=== PATIENT | female | born 1965 | race Caucasian/White ===

== ENCOUNTER → 2016-12-16 | Outpatient (CLI) | payer OTHER ==
[~2016-12-16] MED LIST: ALBU17I INH; ALBU6.7H INH; CETI1TAB21 PO; CETI1TAB53 PO; CHRO1000 PO; CINN500C13 PO; CINN500C7 PO; COEN1CAP PO; CRAN1000 PO; CRAN500C2 PO; DULE100A INH; FISH OIL OMEGA PO; FISH1000 PO; GABA300C5 PO; GLIP10TA6 PO; GLUC10TA3 OR; IRON27TA PO; LEVEMIR SQ; LISI10TA3 PO; LOVA10TA PO; LOVA40TA PO; METF1000 PO; METF750T PO; MULT-11 PO; MULTTAB67 PO; NOVOLOGP2 SQ; OMEP20TA OR; OMEP20TA PO; PROBCAP10 OR; PROV10TA PO; SACC1CAP3 PO; SYMB80AE INH; TAB-TAB PO; VITA100064 PO; VITA1CAP20 PO; VITA500T83 PO
[2016-12-16 11:34] LABS: HEMATOCRIT 25.9 % (35.0-46.0); MEAN CORPUSCULAR HEMOGLOBIN 24.1 PG (27.0-34.0); MEAN CORPUSCULAR HGB CONC 31.8 % (32.0-36.0); PLATELET COUNT 213 TH/MM3 (150-450); RED CELL DISTRIBUTION WIDTH 15.5 % (11.6-17.2); REVIEW FLAG FINAL; WHITE BLOOD COUNT 7.9 TH/MM3 (4.0-11.0)
[2016-12-16 12:02] LABS: ALT (GPT) 29 U/L (10-53); ANION GAP 10 MEQ/L (5-15); AST (GOT) 17 U/L (15-37); BICARBONATE 25.9 MEQ/L (21.0-32.0); BLOOD UREA NITROGEN 17 MG/DL (7-18); CHLORIDE 101 MEQ/L (98-107); GLOMERULAR FILTRATION RATE 67 ML/MIN (>89); GLUCOSE,FASTING 329 MG/DL (74-99); POTASSIUM 4.4 MEQ/L (3.5-5.1); SODIUM (NA) 137 MEQ/L (136-145)
[2016-12-16 12:04] LABS: ALKALINE PHOSPHATASE 62 U/L (45-117); TOTAL BILIRUBIN ADULT 0.2 MG/DL (0.2-1.0)
--- NOTE | 2016-12-16 17:03 | EKG ---
Date Performed: 12/16/2016 Time Performed: 11:21:09 PTAGE: 51 years EKG: Sinus rhythm NORMAL ECG NO PREVIOUS TRACING DOCTOR: Mj Miranda Interpretating Date/Time 12/16/2016 17:02:37
== END ==
LOC: CPRE 10:22
PROVIDERS: ATTEND Obstetrics & Gynecology
DX: Z01.810 Encounter for preprocedural cardiovascular examination (principal); Z01.812 Encounter for preprocedural laboratory examination; R93.8 Abnormal findings on diagnostic imaging of other specified body structures; D64.9 Anemia, unspecified; N92.1 Excessive and frequent menstruation with irregular cycle; E11.9 Type 2 diabetes mellitus without complications
CPT/HCPCS: 36415; 80053; 85027; 86803; 93005

== ENCOUNTER → 2016-12-18 | Day surgery (SDC) | payer OTHER ==
[~2016-12-18] VITALS: Ht 157.5 cm; Wt 99.5 kg
[~2016-12-18] MED LIST changes: +*morphine SULFATE 8 MG/ML PERIprocedure ONLY ONE; -ALBU17I INH; -CETI1TAB21 PO; +CHLORHEXIDINE GLUCONATE 2 % 1 PACK (2 CLOTHS) TOPICAL PRN; -CINN500C7 PO; -CRAN1000 PO; -CRAN500C2 PO; +DO NOT ADM ANY ANTICOAGULANT DRUGS PRN; -FISH OIL OMEGA PO; -FISH1000 PO; -GLIP10TA6 PO; -GLUC10TA3 OR; +INSULIN HUMAN REGULAR 1,000 UNITS/10 ML VIAL SQ PRN; +KETOROLAC TROMETHAMINE 60 MG/2 ML (IM) VIAL IM ONE; +LACTATED RINGER'S 1000 ML INJ 1,000 ML IV ONE; +LACTATED RINGER'S 1000 ML IV PRN; -LOVA10TA PO; -METF750T PO; +METOPROLOL TARTRATE 25 MG TAB PO PRN; +MIDAZOLAM HCL 2 MG/2 ML VIAL ONE; -MULTTAB67 PO; -OMEP20TA OR; +ONDANSETRON HCL 4 MG/2 ML VIAL IV PRN; +ONDANSETRON HCL 4 MG/2 ML VIAL IV PUSH ONE; +PHENYLEPH/NS 1000 MCG/10 ML SYR IV ONE; +POVIDONE IODINE 5% (ANTISEPSIS KIT) 4 APPLICATIONS EACH NARE PRN; -PROBCAP10 OR; +PROPOFOL 200 MG/20 ML AMP IV ONE; +RESP: ALBUTEROL 2.5 MG/3 ML NEB (PRN) ONE; +SODIUM CHLORID 0.9% 500 ML IV PRN; -SYMB80AE INH; -TAB-TAB PO; +oxyCODONE/ACETAMINOPHEN 5 MG/325 MG TAB PO PRN
[2016-12-18 11:09] VITALS: BP 124/75; PULSE 100; RESP 18; TEMP 97.9; O2SAT 99
[2016-12-18 14:15] VITALS: BP 119/78; PULSE 102; RESP 16; O2SAT 98
--- NOTE | 2016-12-20 07:11 | MP ---
cc: RADHA GUAJARDO DATE OF SURGERY 12/18/2016 PREOPERATIVE DIAGNOSIS Menometrorrhagia POSTOPERATIVE DIAGNOSIS Menometrorrhagia plus submucous myomas times two. PROCEDURE Examination under anesthesia, dilation and curettage of the uterus, hysteroscopy, myomectomy x2. ANESTHESIA General SURGEON Anatoliy Guajardo MD FINDINGS Exam under anesthesia, the vagina was clean without lesions. The cervix was parous without lesions. The uterus was slightly enlarged, mobile and no definite irregularities. The adnexa was negative for masses, hysteroscopic exam revealed an enlarged endometrial cavity with two submucous myomas both on the right side on the lateral sidewall of the uterus. There was a large amount of endometrial tissue present. There were no polyps. She sounded to 10 cm. COMPLICATIONS None COUNTS Correct ESTIMATED BLOOD LOSS Minimal CONDITION The patient tolerated the procedure well and recovery room in good condition. PROCEDURE The patient was taken to the operating room, identified by name band and verbally given a general anesthetic, placed in the dorsal lithotomy position. She was prepped and draped in the usual sterile manner for vaginal surgery. The urinary bladder was drained with in-and-out catheter and the examination under anesthesia was carried out with the above findings. A weighted speculum placed the vagina. The anterior lip of the cervix was grasped with a single-tooth tenaculum. The cervix serially dilated to accept my MyoSure hysteroscope. Using the MyoSure device, we took care of those two submucous myomas completely and got a good 95% of the endometrial tissue out. Once this had been accomplished, the hysteroscope was removed and sharp curettage with the #1 sharp curette was done without difficulty. At this point, the procedure was terminated. Instruments were removed. She tolerated the procedure well and went to the recovery room in good condition. She did receive Toradol 15 mg in the operating theater. Sugar Guajardo MD RJV/FELICE /1:10 PM /7:04 AM
--- NOTE | 2016-12-22 06:21 | MP ---
cc: RADHA GUAJARDO DATE OF SURGERY: December 18, 2016 PREOPERATIVE DIAGNOSIS Menometrorrhagia POSTOPERATIVE DIAGNOSIS Menometrorrhagia. Submucous fibroids x2. PROCEDURE: Hysteroscopic exam, D&C with MyoSure, myomectomy x2. ANESTHESIA: General. SURGEON: Sugar Guajardo MD. FINDINGS: Examination under anesthesia, vagina was clean. The cervix was clean. Uterus seems slightly enlarged although it was difficult because of the adipose tissue. Adnexa were negative for masses. The hysteroscopic exam revealed a large amount of fluffy endometrium, the uterus sounded to 10 cm. There was two small myomas 1-1/2 cm each that were removed with the MyoSure device. COMPLICATIONS None. COUNTS: Correct. ESTIMATED BLOOD LOSS: Minimal The patient tolerated the procedure well and went to the Recovery Room in good condition. DESCRIPTION OF PROCEDURE: The patient was taken to the operating room identified by name band and verbally given a general anesthetic, carefully placed in dorsolithotomy position, prepped and draped in the usual fashion for vaginal surgery. Time-out was taken. The urinary bladder was drained with the in-and-out cath and a weighted speculum was placed into the vagina after the exam under anesthesia. The anterior lip of the cervix was grasped with a single-tooth tenaculum and the cervix was serially dilated without difficulty. The hysteroscope was inserted at which time we noted a large amount of fluffy material and two submucous myomas, probably adding to her bleeding. The MyoSure device was then inserted through the hysteroscope and we removed those myomas followed by cleaning the remainder of the uterus out. At this time the hysteroscope was removed and a sharp curettage followed. At this point all the instruments were removed. She did receive Toradol in the operating theater and she went to the recovery room in good condition. She tolerated the procedure well. R. MD BERNARDINO Hawkins/GILMA /7:04 AM /6:16 AM
== END | disposition home or self-care (01) ==
LOC: HSDC 10:31
PROVIDERS: ATTEND Obstetrics & Gynecology
DX: N92.1 Excessive and frequent menstruation with irregular cycle (principal); N93.8 Other specified abnormal uterine and vaginal bleeding; D64.9 Anemia, unspecified; E28.2 Polycystic ovarian syndrome; E11.9 Type 2 diabetes mellitus without complications; J44.9 Chronic obstructive pulmonary disease, unspecified; L71.9 Rosacea, unspecified; K76.89 Other specified diseases of liver; Z79.4 Long term (current) use of insulin; E78.5 Hyperlipidemia, unspecified; K21.9 Gastro-esophageal reflux disease without esophagitis; I10 Essential (primary) hypertension; G47.30 Sleep apnea, unspecified; K58.9 Irritable bowel syndrome, unspecified
CPT/HCPCS: 00860; 58145; 58558; 82948; 88305; J1885; J2250; J2270; J2370; J2405; J3010; J7120; J7613

== ENCOUNTER 2017-10-15 06:40 | Emergency (ER) | payer OTHER ==
[~2017-10-15] VITALS: Ht 157.5 cm; Wt 100.0 kg
[~2017-10-15 06:40] MED LIST changes: -*morphine SULFATE 8 MG/ML PERIprocedure ONLY ONE; -CHLORHEXIDINE GLUCONATE 2 % 1 PACK (2 CLOTHS) TOPICAL PRN; -CINN500C13 PO; +CINN500C2 PO; -DO NOT ADM ANY ANTICOAGULANT DRUGS PRN; -INSULIN HUMAN REGULAR 1,000 UNITS/10 ML VIAL SQ PRN; -KETOROLAC TROMETHAMINE 60 MG/2 ML (IM) VIAL IM ONE; -LACTATED RINGER'S 1000 ML INJ 1,000 ML IV ONE; -LACTATED RINGER'S 1000 ML IV PRN; -METOPROLOL TARTRATE 25 MG TAB PO PRN; -MIDAZOLAM HCL 2 MG/2 ML VIAL ONE; -OMEP20TA PO; +OMEP20TA93 PO; -ONDANSETRON HCL 4 MG/2 ML VIAL IV PRN; -ONDANSETRON HCL 4 MG/2 ML VIAL IV PUSH ONE; -PHENYLEPH/NS 1000 MCG/10 ML SYR IV ONE; -POVIDONE IODINE 5% (ANTISEPSIS KIT) 4 APPLICATIONS EACH NARE PRN; -PROPOFOL 200 MG/20 ML AMP IV ONE; -RESP: ALBUTEROL 2.5 MG/3 ML NEB (PRN) ONE; -SODIUM CHLORID 0.9% 500 ML IV PRN; -oxyCODONE/ACETAMINOPHEN 5 MG/325 MG TAB PO PRN
[2017-10-15 07:07] VITALS: BP 146/84; PULSE 97; RESP 17; TEMP 97.7; O2SAT 99
[2017-10-15 07:19] VITALS: BP 133/70; PULSE 103; RESP 20; O2SAT 97
[2017-10-15] MEDS ORDERED: INSU1INJ14 SQ (07:26)
[2017-10-15] MEDS ORDERED: DIPHENOXYLATE/ATROPINE 2.5 MG/0.025 MG TAB PO ONE (07:30)
[2017-10-15] MEDS ORDERED: SODIUM CHLOR 0.9% 1000 ML INJ 1,000 ML IV SCH (07:30)
--- NOTE | 2017-10-15 07:32 | PD ---
HPI Chief Complaint: Abnormal Results Time Seen by Provider: 07:16 Travel History International Travel<30 days: No Contact w/Intl Traveler<30days: No Traveled to known affect area: No History of Present Illness HPI 52-year-old female complains generalized malaise, diarrhea, urinary frequency and hypotension. Patient states that she has intermittent diarrhea for the past several days. Patient states that her blood pressures have been labile at home. Patient states that her blood pressure has been up to 140s and down in the 80s at home. Patient denies any headache. Patient denies any chest pain or shortness of breath. Patient denies abdominal pain. Patient has history hypertension and diabetes. Patient has been taking lisinopril as directed. Patient states that her blood sugar has been running around in the 140s at home. Patient denies any fever chills. Patient denies any nausea vomiting. Patient states that she has been eating well. Patient denies any blood or mucus in the stool. PFSH Past Medical History Asthma: Yes Cancer: No Cardiovascular Problems: No High Cholesterol: Yes Diabetes: Yes Patient Takes Glucophage: Yes Diminished Hearing: No Endocrine: Yes Gastrointestinal Disorders: Yes (REFLUX, NONALCHOLIC LIVER CHROSIS) GERD: Yes Genitourinary: Yes (HX UTI) Hepatitis: No Hiatal Hernia: No Hypertension: Yes Immune Disorder: No Musculoskeletal: Yes (OA) Neurologic: Yes (NEUROPATHY, BELLS PALSY,RLS) Psychiatric: No Reproductive: No Respiratory: Yes (ASTHMA, SLEEP APNEA) Immunizations Current: No Pneumonia: Yes Sleep Apnea: Yes (no cpap) Thyroid Disease: No ?: Not Past Surgical History Abdominal Surgery: Yes (CHOLECYSTECTOMY) AICD: No Body Medical Devices: NONE Cholecystectomy: Yes (2004) Ear Surgery: Yes (CHILDHOOD) Gynecologic Surgery: Yes (2003--"D&C") Joint Replacement: No Oral Surgery: Yes (TONSILLECTOMY) Pacemaker: No Tonsillectomy: Yes (1968) Other Surgery: Yes Social History Alcohol Use: No Tobacco Use: Yes (4 clove cigars a day) Substance Use: No Allergies-Medications (Allergen,Severity, Reaction): Coded Allergies: hydrocodone (Unverified Allergy, Severe, HIVES, 10/15/17) codeine (Unverified Adverse Reaction, Severe, Nausea/Vomiting, 10/15/17) Reported Meds & Prescriptions Reported Meds & Active Scripts Active Reported Tresiba Flextouch Pen Inj (Insulin Degludec Inj) 300 unit/3 ML Pen 60 Units SQ HS Alive Womens Energy (Multiple Vitamins W/ Minerals) 1 Tab Tab 1 Tab PO DAILY Co Q-10 (Coenzyme Q10 (Ubidecarenone)) 100 Mg Cap 100 Mg PO BID Lisinopril 10 Mg Tab 10 Mg PO DAILY Gabapentin 300 Mg Cap 300 Mg PO BID Vitamin C ER (Ascorbic Acid) 500 Mg Nico 500 Mg PO DAILY Iron (Ferrous Gluconate) 27 Mg Tab 27 Mg PO DAILY Vitamin D3 (Cholecalciferol) 1,000 Unit Tab 2,000 Units PO DAILY Novolog Inj (Insulin Aspart) 1,000 Unit/10 Ml Vial 25 Units SQ TIDAC Super B-50 Complex (Vitamin B Complex) 1 Each Capsule 1 Cap PO DAILY Metformin (Metformin HCl) 1,000 Mg Tab 1,000 Mg PO BIDPC With meals Dulera 120 Act Inh (Mometasone-Formoterol 120 Act Inh) 100-5 Mcg/Act Inh 2 Puff INH BID Probiotic (Saccharomyces Boulardii) 250 Mg Cap 250 Mg PO BID Omeprazole 20 Mg Tab 20 Mg PO DAILY Eql Cinnamon (Cinnamon) 500 Mg Cap 500 Mg PO DAILY Zyrtec-D Tablet (Cetirizine HCl/Pseudoephedrine) 1 Each Tab.er.12h 1 Tab PO DAILY Proventil Hfa 6.7 GM Inh (Albuterol Sulfate) 90 Mcg/Act Aer 2 Puff INH Q4-6H PRN Review of Systems General / Constitutional: No: Fever Eyes: No: Visual changes HENT: No: Headaches Cardiovascular: No: Chest Pain or Discomfort Respiratory: No: Shortness of Breath Gastrointestinal: Positive: Diarrhea, No: Abdominal Pain Genitourinary: No: Dysuria Musculoskeletal: No: Pain Skin: No Rash Neurologic: No: Weakness Psychiatric: No: Depression Endocrine: No: Polydipsia Hematologic/Lymphatic: No: Easy Bruising Physical Exam Narrative GENERAL: Well-nourished, well-developed patient. SKIN: Focused skin assessment warm/dry. HEAD: Normocephalic. EYES: No scleral icterus. No injection or drainage. NECK: Supple, trachea midline. No JVD or lymphadenopathy. CARDIOVASCULAR: Regular rate and rhythm without murmurs, gallops, or rubs. RESPIRATORY: Breath sounds equal bilaterally. No accessory muscle use. GASTROINTESTINAL: Abdomen soft, nondistended. Patient has mild diffuse tenderness over the abdomen. No rebound tenderness. No mass. MUSCULOSKELETAL: No cyanosis, or edema. BACK: Nontender without obvious deformity. No CVA tenderness. Neurologic exam normal. Data Data Last Documented VS Vital Signs Date Time Temp Pulse Resp B/P (MAP) Pulse Ox O2 Delivery O2 Flow Rate FiO2 10/15/17 08:12 93 19 141/73 (95) 97 Room Air 10/15/17 07:07 97.7 Orders Orders Complete Blood Count With Diff (10/15/17 07:24) Basic Metabolic Panel (Bmp) (10/15/17 07:24) Iv Access Insert/Monitor (10/15/17 07:24) Ecg Monitoring (10/15/17 07:24) Oximetry (10/15/17 07:24) Diphenoxylate/Atropine Tab (Lomotil Tab) (10/15/17 07:30) Sodium Chlor 0.9% 1000 Ml Inj (Ns 1000 M (10/15/17 07:30) Ed Discharge Order (10/15/17 08:13) Labs Laboratory Tests Test 10/15/17 07:35 White Blood Count 13.8 TH/MM3 Red Blood Count 4.93 MIL/MM3 Hemoglobin 13.7 GM/DL Hematocrit 40.9 % Mean Corpuscular Volume 82.9 FL Mean Corpuscular Hemoglobin 27.9 PG Mean Corpuscular Hemoglobin Concent 33.6 % Red Cell Distribution Width 14.4 % Platelet Count 272 TH/MM3 Mean Platelet Volume 9.2 FL Neutrophils (%) (Auto) 74.9 % Lymphocytes (%) (Auto) 16.7 % Monocytes (%) (Auto) 5.9 % Eosinophils (%) (Auto) 1.9 % Basophils (%) (Auto) 0.6 % Neutrophils # (Auto) 10.4 TH/MM3 Lymphocytes # (Auto) 2.3 TH/MM3 Monocytes # (Auto) 0.8 TH/MM3 Eosinophils # (Auto) 0.3 TH/MM3 Basophils # (Auto) 0.1 TH/MM3 CBC Comment DIFF FINAL Differential Comment Blood Urea Nitrogen 25 MG/DL Creatinine 0.98 MG/DL Random Glucose 193 MG/DL Calcium Level 8.9 MG/DL Sodium Level 138 MEQ/L Potassium Level 4.2 MEQ/L Chloride Level 100 MEQ/L Carbon Dioxide Level 28.5 MEQ/L Anion Gap 10 MEQ/L Estimat Glomerular Filtration Rate 59 ML/MIN MDM Medical Decision Making Medical Screen Exam Complete: Yes Emergency Medical Condition: Yes Interpretation(s) 8:13 AM. CBC BMP within normal limits. Differential Diagnosis Differential diagnosis including gastroenteritis, dehydration, labile blood pressure. Narrative Course 52-year-old female with complains of generalized malaise, occasional hypotension , diarrhea. Normal saline solution 1 25 cc an hour. Lomotil 1 tablet p.o. given. Patient was monitored and blood pressure stabilized. Diagnosis Primary Impression: Gastroenteritis Additional Impression: Vasovagal reaction Patient Instructions: General Instructions Additional Instructions: [id number] Imodium as needed for diarrhea. Follow-up with personal physician. Return as needed. Med/Other Pt SpecificInfo: No Change to Meds Disposition: 01 DISCHARGE HOME Condition: Stable Justin Morrell MD Oct 15, 2017 07:32
[2017-10-15 07:38] VITALS: O2SAT 97
[2017-10-15 07:48] LABS: AUTOMATED NEUTROPHIL # 10.4 TH/MM3 (1.8-7.7); BASOPHIL # 0.1 TH/MM3 (0-0.2); BASOPHIL % 0.6 % (0.0-2.0); EOSINOPHIL # 0.3 TH/MM3 (0-0.4); EOSINOPHIL % 1.9 % (0.0-4.0); HEMATOCRIT 40.9 % (35.0-46.0); HEMOGLOBIN 13.7 GM/DL (11.6-15.3); LYMPH % 16.7 % (9.0-44.0); LYMPHOCYTE # 2.3 TH/MM3 (1.0-4.8); MEAN CELL VOLUME 82.9 FL (80.0-100.0); MEAN CORPUSCULAR HEMOGLOBIN 27.9 PG (27.0-34.0); MEAN CORPUSCULAR HGB CONC 33.6 % (32.0-36.0); MEAN PLATELET VOLUME 9.2 FL (7.0-11.0); MONO % 5.9 % (0.0-8.0); MONOCYTE # 0.8 TH/MM3 (0-0.9); NEUT % 74.9 % (16.0-70.0); PLATELET COUNT 272 TH/MM3 (150-450); RED BLOOD COUNT 4.93 MIL/MM3 (4.00-5.30); RED CELL DISTRIBUTION WIDTH 14.4 % (11.6-17.2); WHITE BLOOD COUNT 13.8 TH/MM3 (4.0-11.0)
[2017-10-15 08:06] LABS: BICARBONATE 28.5 MEQ/L (21.0-32.0); CALCIUM 8.9 MG/DL (8.5-10.1); CREATININE 0.98 MG/DL (0.50-1.00)
[2017-10-15 08:12] VITALS: BP 141/73; PULSE 93; RESP 19; O2SAT 97
== END 2017-10-15 08:47 | disposition home or self-care (01) ==
LOC: NEPC 06:40
DX: K52.9 Noninfective gastroenteritis and colitis, unspecified (principal); R55 Syncope and collapse; I95.9 Hypotension, unspecified; R35.0 Frequency of micturition; I10 Essential (primary) hypertension; E11.9 Type 2 diabetes mellitus without complications; J45.909 Unspecified asthma, uncomplicated; E78.00 Pure hypercholesterolemia, unspecified; E11.40 Type 2 diabetes mellitus with diabetic neuropathy, unspecified
CPT/HCPCS: 80048; 85025; 96360; 99284; J7030